=== PATIENT | female | born 1980 | race Two or more races ===

== ENCOUNTER 2024-12-06 13:52 | Emergency (ER) | payer OTHER ==
[~2024-12-06] VITALS: Ht 154.9 cm; Wt 59.0 kg
[~2024-12-06 13:52] MED LIST: VISTARIL25 MG PO; VIT C 500 MG-E500 MG PO
[2024-12-06 14:25] VITALS: BP 134/78; O2SAT 97
[2024-12-06] MEDS ORDERED: ORPHENADRINE CITRATE 30 MG/ML AMPUL IM ONE (15:30)
[2024-12-06] MEDS ORDERED: KETOROLAC TROMETHAMINE 30 MG VIAL IM ONE (15:30)
[2024-12-06] MEDS ORDERED: ORPHENADRINE CITRATE 30 MG/ML AMPUL ONE (15:43)
[2024-12-06] MEDS ORDERED: KETOROLAC TROMETHAMINE 30 MG VIAL ONE (15:43)
[2024-12-06 16:07] LABS: EOS # 0.09 (0.04-0.54); EOS % 1.3 % (0.7-7.0); HEMATOCRIT 31.2 % (34.1-44.9); HEMOGLOBIN 9.1 g/dL (11.2-15.7); LYMPH # 1.17 (1.18-3.74); LYMPH % 16.7 % (19.3-53.1); MEAN CORPUSCULAR HEMOGLOBIN 18.6 pg (25.6-32.2); MONO # 0.76 (0.24-0.82); MONO % 10.9 % (4.7-12.5); NEUT # 4.88 (1.56-6.13); NEUT % 69.8 % (34.0-71.1); PLATELET COUNT 444 K/uL (163-369); RED BLOOD COUNT 4.89 M/uL (3.93-5.22); RED CELL DISTRIBUTION WIDTH 18.8 % (11.6-14.4)
[2024-12-06] MEDS ORDERED: NORFLEX100MG PO (16:32)
[2024-12-06] MEDS ORDERED: DICLOFENAC SODI50 MG PO (16:32)
== END 2024-12-06 16:55 ==
LOC: ER 14:10
PROVIDERS: General Practice
DX: M62.838 Other muscle spasm (principal); M54.2 Cervicalgia